=== PATIENT | female | born 1945 | race Caucasian/White ===

== ENCOUNTER 2016-04-24 10:46 | Emergency (ER) | payer MEDICARE, MEDICAID ==
[2016-04-24] MEDS: NS 0.9% 1000 ML* 2,000 ML IV ONE ×2 (12:17→13:12)
[2016-04-24 12:28] LABS: Hematocrit 41 % (35-47); Hemoglobin 14.1 g/dl (12.0-16.0); Mean Corpuscular HGB Conc 34 g/dl (31-36); Mean Corpuscular Hemoglobin 30 pg (27-31); Mean Corpuscular Volume 87 fL (80-97); Mean Platelet Volume 8 um3 (7.4-10.4); Red Blood Count 4.76 10^6/ul (4.0-5.4); Red Cell Distribution Width 13 % (10.5-15); White Blood Count 9.4 10^3/ul (3.5-10.8)
--- NOTE | 2016-04-24 12:37 | RAD ---
INDICATION: Cough. Pneumonia. COMPARISON: December 02, 2010 TECHNIQUE: PA and lateral dual-energy views were obtained. FINDINGS: Bones/Soft Tissues: There are no acute bony findings. Cardiomediastinal: The cardiomediastinal silhouette is normal. Lungs: There are no infiltrates. Pleura: There are no pleural effusions. Other: None IMPRESSION: NO ACTIVE DISEASE.
--- NOTE | 2016-04-24 12:44 | RAD ---
INDICATION: Vomiting. Abdominal pain COMPARISON: None TECHNIQUE: Erect and supine views of the abdomen are submitted. FINDINGS: Bones: There are no acute bony findings. Soft tissues: The soft tissues appear normal. The psoas margins are sharp. Bowel gas pattern: Normal Calcifications: There are no abnormal calcifications. Other: None IMPRESSION: NO ACUTE DIAGNOSTIC FINDINGS.
[2016-04-24 12:46] LABS: Troponin I 0.01 ng/mL (<0.04)
[2016-04-24 13:27] LABS: ALT 22 U/L (7-52); AST 29 U/L (13-39); Albumin 4.3 g/dL (3.2-5.2); Alkaline Phosphatase 70 U/L (34-104); Anion Gap 9 mmol/L (2-11); BUN/Creatinine Ratio 17.6 (8-20); Blood Urea Nitrogen 9 mg/dL (6-24); C Reactive Protein < 1.00 mg/L (< 5.00); CO2 Carbon Dioxide 26 mmol/L (22-32); Chloride 94 mmol/L (101-111); EGFR African American 153.3 (>60); EGFR Non-African American 119.2 (>60); Globulin 3.7 g/dL (2-4); Glucose 146 mg/dL (70-100); Magnesium 1.8 mg/dL (1.9-2.7); Potassium 3.5 mmol/L (3.5-5.0); Sodium 129 mmol/L (133-145)
[2016-04-24 13:36] LABS: TSH (Thyroid Stimulating Horm) 0.82 mcIU/mL (0.34-5.60)
[2016-04-24 14:22] VITALS: BP 149/61
--- NOTE | 2016-04-24 15:22 | ED ---
Yasmeen Kaiser SooYoung, scribed for Cristopher Alonso MD on 04/24/16 at 1126 . Complex/Multi-Sys Presentation - HPI Summary HPI Summary: A 70 y/o F BIBA from assisted living presents to ED after episode of dizziness. Pt has a mental handicap, may be an unreliable narrator, is present with a umbrella repairer. Associated sx: high BP, mild cough. Pt denies nausea, sore throat, CP and pain. Pert PMHx: mini strokes. Car Builder is unsure if pt fell yesterday, signs of broken vase in bathroom, but no visible bruising, pt denies fall. According to umbrella repairer, pt did not have a BM yesterday, pt complained of abd pain and she did not eat breakfast. Other residents have had the flu. Car Builder notes pt appears better than when she was brought in. - History Of Current Complaint Chief Complaint: EDGeneral Time Seen by Provider: 04/24/16 11:15 Hx Obtained From: Family/Car Builder Onset/Duration: Still Present Timing: Constant Associated Signs And Symptoms: Positive: Other - pos: high BP, mild cough - Allergies/Home Medications Allergies/Adverse Reactions: Allergies Allergy/AdvReac Type Severity Reaction Status Date / Time Ibuprofen Allergy Unknown Unknown Verified 02/10/16 20:20 Reaction Details PMH/Surg Hx/FS Hx/Imm Hx Previously Healthy: No Endocrine/Hematology History: Denies: Hx Anticoagulant Therapy, Hx Diabetes, Hx Thyroid Disease Cardiovascular History: Reports: Hx Hypertension Denies: Hx Congestive Heart Failure, Hx Deep Vein Thrombosis, Hx Myocardial Infarction, Hx Pacemaker/ICD Respiratory History: Denies: Hx Asthma, Hx Chronic Obstructive Pulmonary Disease (COPD), Hx Lung Cancer, Hx Pneumonia, Hx Pulmonary Embolism GI History: Denies: Hx Gall Bladder Disease, Hx Gastrointestinal Bleed, Hx Ulcer, Hx Urosepsis History: Denies: Hx Kidney Stones, Hx Renal Disease Sensory History: Denies: Hx Hearing Aid Neurological History: Denies: Hx Dementia, Hx Migraine, Hx Seizures, Hx Transient Ischemic Attacks (TIA) Psychiatric History: Reports: Hx Anxiety Denies: Hx Depression, Hx Panic Disorder, Hx Schizophrenia, Hx Bipolar Disorder - Surgical History Surgery Procedure, Year, and Place: NO KNOWN SURGERIES PER [facility] Infectious Disease History: No Infectious Disease History: Denies: Traveled Outside the [place] in Last 30 Days - Family History Known Family History: Positive: Unknown Family History: Patient is in a skilled nursing for mentally handicapped adults. Car Builder is new, and there are no records on family history (records reviewed) and the patient is not of the cognitive level to give us that information. - Social History Occupation: Disabled Lives: Assisted Living Alcohol Use: None Hx Substance Use: No Substance Use Type: Reports: None Hx Tobacco Use: No Smoking Status (MU): Never Smoked Tobacco Review of Systems Negative: Sore Throat Positive: Other - pos: BP. Negative: Chest Pain Positive: Cough Negative: Nausea Neurological: Other - pos: dizziness All Other Systems Reviewed And Are Negative: Yes Physical Exam - Summary Physical Exam Summary: The patient is well-nourished in no acute distress and in no acute pain. The skin is warm and FLUSHING OF FACE AND CHEST. HEENT: The head is normocephalic and atraumatic. The pupils are equal and reactive. The conjunctivae are clear and without drainage. Nares are patent and without drainage. Mouth reveals moist mucous membranes. The external ears are intact. The ear canals are patent and without drainage. The tympanic membranes are intact. POST NASAL DRIP. THROAT ERYTHEMATOUS. Neck is supple with full range of motion and non-tender. There are no carotid bruits. There is no neck vein distension. Respiratory: Chest is non-tender. Lungs are clear to auscultation and breath sounds are symmetrical and equal. Cardiovascular: Heart is regular rate and rhythm. There is no murmur or rub auscultated. There is no peripheral edema and pulses are symmetrical and equal. Abdomen: The abdomen is soft and non-tender. There are normal bowel sounds heard in all four quadrants and there is no organomegaly palpated. Musculoskeletal: There is no back pain noted. Extremities are non-tender with full range of motion. UNABLE TO CAPILLARY REFILL. There is no peripheral edema or calf tenderness elicited. Neurological: The patient has symmetrical motor strength in all four extremities. Cranial nerves are grossly intact. Deep tendon reflexes are symmetrical and equal in all four extremities. Psychiatric: The patient has an appropriate affect and does not exhibit any anxiety or depression. Triage Information Reviewed: Yes Vital Signs On Initial Exam: Initial Vitals Temp Pulse Resp BP Pulse Ox 99.2 F 97 18 156/59 96 04/24/16 10:58 04/24/16 10:58 04/24/16 10:58 04/24/16 10:58 04/24/16 10:58 Vital Signs Reviewed: Yes - [place] Coma Scale Coma Scale Total: 15 Diagnostics - Vital Signs Vital Signs Temp Pulse Resp BP Pulse Ox 04/24/16 10:58 99.2 F 97 18 156/59 96 - Laboratory Lab Results: Lab Results 04/24/16 04/24/16 04/24/16 Range/Units 12:20 12:20 12:20 WBC 9.4 (3.5-10.8) 10^3/ul RBC 4.76 (4.0-5.4) 10^6/ul Hgb 14.1 (12.0-16.0) g/dl Hct 41 (35-47) % MCV 87 (80-97) fL MCH 30 (27-31) pg MCHC 34 (31-36) g/dl RDW 13 (10.5-15) % Plt Count 196 (150-450) 10^3/ul MPV 8 (7.4-10.4) um3 Neut % (Auto) 88.3 H (38-83) % Lymph % (Auto) 7.3 L (25-47) % [place] % (Auto) 4.1 (1-9) % Eos % (Auto) 0 (0-6) % Baso % (Auto) 0.3 (0-2) % Absolute Neuts (auto) 8.3 H (1.5-7.7) 10^3/ul Absolute Lymphs (auto) 0.7 L (1.0-4.8) 10^3/ul Absolute Monos (auto) 0.4 (0-0.8) 10^3/ul Absolute Eos (auto) 0 (0-0.6) 10^3/ul Absolute Basos (auto) 0 (0-0.2) 10^3/ul Absolute Nucleated RBC 0.01 10^3/ul Nucleated RBC % 0.1 Sodium 129 L (133-145) mmol/L Potassium 3.5 (3.5-5.0) mmol/L Chloride 94 L (101-111) mmol/L Carbon Dioxide 26 (22-32) mmol/L Anion Gap 9 (2-11) mmol/L BUN 9 (6-24) mg/dL Creatinine 0.51 (0.51-0.95) mg/dL Est GFR ( Amer) 153.3 (>60) Est GFR (Non-Af Amer) 119.2 (>60) BUN/Creatinine Ratio 17.6 (8-20) Glucose 146 H (70-100) mg/dL Lactic Acid 1.1 (0.5-2.0) mmol/L Calcium 10.0 (8.6-10.3) mg/dL Magnesium 1.8 L (1.9-2.7) mg/dL Total Bilirubin 0.60 (0.2-1.0) mg/dL AST 29 (13-39) U/L ALT 22 (7-52) U/L Alkaline Phosphatase 70 (34-104) U/L Troponin I 0.01 (<0.04) ng/mL C-Reactive Protein < 1.00 (< 5.00) mg/L Total Protein 8.0 (6.4-8.9) g/dL Albumin 4.3 (3.2-5.2) g/dL Globulin 3.7 (2-4) g/dL Albumin/Globulin Ratio 1.2 (1-3) TSH 0.82 (0.34-5.60) mcIU/mL Group A Strep Rapid (Negative) 04/24/16 Range/Units 12:22 WBC (3.5-10.8) 10^3/ul RBC (4.0-5.4) 10^6/ul Hgb (12.0-16.0) g/dl Hct (35-47) % MCV (80-97) fL MCH (27-31) pg MCHC (31-36) g/dl RDW (10.5-15) % Plt Count (150-450) 10^3/ul MPV (7.4-10.4) um3 Neut % (Auto) (38-83) % Lymph % (Auto) (25-47) % [place] % (Auto) (1-9) % Eos % (Auto) (0-6) % Baso % (Auto) (0-2) % Absolute Neuts (auto) (1.5-7.7) 10^3/ul Absolute Lymphs (auto) (1.0-4.8) 10^3/ul Absolute Monos (auto) (0-0.8) 10^3/ul Absolute Eos (auto) (0-0.6) 10^3/ul Absolute Basos (auto) (0-0.2) 10^3/ul Absolute Nucleated RBC 10^3/ul Nucleated RBC % Sodium (133-145) mmol/L Potassium (3.5-5.0) mmol/L Chloride (101-111) mmol/L Carbon Dioxide (22-32) mmol/L Anion Gap (2-11) mmol/L BUN (6-24) mg/dL Creatinine (0.51-0.95) mg/dL Est GFR ( Amer) (>60) Est GFR (Non-Af Amer) (>60) BUN/Creatinine Ratio (8-20) Glucose (70-100) mg/dL Lactic Acid (0.5-2.0) mmol/L Calcium (8.6-10.3) mg/dL Magnesium (1.9-2.7) mg/dL Total Bilirubin (0.2-1.0) mg/dL AST (13-39) U/L ALT (7-52) U/L Alkaline Phosphatase (34-104) U/L Troponin I (<0.04) ng/mL C-Reactive Protein (< 5.00) mg/L Total Protein (6.4-8.9) g/dL Albumin (3.2-5.2) g/dL Globulin (2-4) g/dL Albumin/Globulin Ratio (1-3) TSH (0.34-5.60) mcIU/mL Group A Strep Rapid Negative (Negative) Result Diagrams: 04/24/16 12:20 04/24/16 12:20 Lab Statement: Any lab studies that have been ordered have been reviewed, and results considered in the medical decision making process. - Radiology CXR Xray Interpretation: No Acute Changes - no active dz Radiology Interpretation Completed By: Radiologist ABD XR Xray Interpretation: No Acute Changes - IMPRESSION: No acute diagnostic findings. Radiology Interpretation Completed By: Radiologist - EKG 1 Cardiac Rate: NL EKG Rhythm: Sinus Rhythm ST Segment: Normal EKG Interpretation: mild artifact Re-Evaluation - Re-Evaluation 1 Re-Evaluation Time: 14:19 Change: Unchanged Comment: Discussing results with pt. Attempted to collect urine but pt had BM. Pt states feeling better. Complex Multi-Symp Course/Dx - Diagnoses Differential Diagnoses/HQI/PQRI: Metabolic Abnormality, Other - chest pain, abdominal pain, sore throat, dehydration Provider Diagnoses: Dizziness, Weakness, Abdominal pain Discharge - Discharge Plan Condition: Stable Disposition: HOME Patient Education Materials: Dizziness (ED) Referrals: Zachary Isabel MD [Primary Care Provider] - Additional Instructions: Follow up with your primary care provider as needed. Return to the Emergency Department with new or worsening symptoms. The documentation as recorded by the Yasmeen cramer SooYoung accurately reflects the service I personally performed and the decisions made by me, Cristopher Alonso MD.
== END 2016-04-24 14:38 | disposition home or self-care (01) ==
LOC: ED 10:46
DX: R42 Dizziness and giddiness (principal); R53.1 Weakness; R10.9 Unspecified abdominal pain; Z86.73 Personal history of transient ischemic attack (TIA), and cerebral infarction without residual deficits; I10 Essential (primary) hypertension
CPT/HCPCS: 36415; 71020; 74020; 80053; 83605; 83735; 84443; 84484; 85025; 86140; 87651; 93005; 96360; 99283

== ENCOUNTER 2016-04-24 17:44 | Emergency (ER) | payer MEDICARE, MEDICAID ==
[2016-04-24] MEDS ORDERED: Ondansetron INJ* 2 MG/ML VIAL IV ONE (18:49)
[2016-04-24] MEDS ORDERED: NS 0.9% 1000 ML* 2,000 ML IV ONE (18:49)
[2016-04-24 19:01] LABS: Hematocrit 38 % (35-47); Hemoglobin 13.2 g/dl (12.0-16.0); Mean Corpuscular HGB Conc 35 g/dl (31-36); Mean Corpuscular Hemoglobin 30 pg (27-31); Mean Corpuscular Volume 86 fL (80-97); Mean Platelet Volume 8 um3 (7.4-10.4); Red Blood Count 4.38 10^6/ul (4.0-5.4); Red Cell Distribution Width 13 % (10.5-15); White Blood Count 11.1 10^3/ul (3.5-10.8)
[2016-04-24 19:19] LABS: ALT 22 U/L (7-52); AST 31 U/L (13-39); Albumin 4.1 g/dL (3.2-5.2); Alkaline Phosphatase 66 U/L (34-104); Anion Gap 9 mmol/L (2-11); Blood Urea Nitrogen 7 mg/dL (6-24); C Reactive Protein < 1.00 mg/L (< 5.00); CO2 Carbon Dioxide 24 mmol/L (22-32); Calcium 9.3 mg/dL (8.6-10.3); Chloride 92 mmol/L (101-111); EGFR African American 156.9 (>60); Globulin 3.3 g/dL (2-4); Glucose 188 mg/dL (70-100); Potassium 3.2 mmol/L (3.5-5.0); Sodium 125 mmol/L (133-145); Total Protein 7.4 g/dL (6.4-8.9)
--- NOTE | 2016-04-24 19:20 | ED ---
Influenza-Like Illness - HPI Summary HPI Summary: Patient was seen approximately 7 hours ago in this ED and now presents with continued nausea and vomiting, and a fever of 100.9. She has mild MR and her caregiver reports she is still dizzy. She has a sore throat that was strep negative at her previous visit. With her continued symptoms her [facility] called her PCP, who told them to bring her back to the ED. She denies neck pain , CONDON, CP or SOB. She admits to mild diffuse abdominal pain. - History of Current Complaint Chief Complaint: EDGeneral Time Seen by Provider: 04/24/16 18:28 Hx Obtained From: Patient, Family/Seismograph Operator Helper Onset/Duration: Gradual Onset Severity: Severe Associated Signs & Symptoms: Fever, Sore Throat, Vomiting Related Hx: Possible Flu/Infectious Exposure - Allergy/Home Medications Allergies/Adverse Reactions: Allergies Allergy/AdvReac Type Severity Reaction Status Date / Time Ibuprofen Allergy Unknown Unknown Verified 04/24/16 17:48 Reaction Details PMH/Surg Hx/FS Hx/Imm Hx Endocrine/Hematology History: Denies: Hx Anticoagulant Therapy, Hx Diabetes, Hx Thyroid Disease Cardiovascular History: Reports: Hx Hypertension Denies: Hx Congestive Heart Failure, Hx Deep Vein Thrombosis, Hx Myocardial Infarction, Hx Pacemaker/ICD Respiratory History: Denies: Hx Asthma, Hx Chronic Obstructive Pulmonary Disease (COPD), Hx Lung Cancer, Hx Pneumonia, Hx Pulmonary Embolism GI History: Denies: Hx Gall Bladder Disease, Hx Gastrointestinal Bleed, Hx Ulcer, Hx Urosepsis History: Denies: Hx Kidney Stones, Hx Renal Disease Sensory History: Denies: Hx Hearing Aid Neurological History: Reports: Other Neuro Impairments/Disorders - MR Denies: Hx Dementia, Hx Migraine, Hx Seizures, Hx Transient Ischemic Attacks (TIA) Psychiatric History: Reports: Hx Anxiety Denies: Hx Depression, Hx Panic Disorder, Hx Schizophrenia, Hx Bipolar Disorder - Surgical History Surgery Procedure, Year, and Place: NO KNOWN SURGERIES PER [facility] Infectious Disease History: No Infectious Disease History: Denies: Traveled Outside the [place] in Last 30 Days - Family History Known Family History: Positive: Unknown Family History: Patient is in a [facility] for mentally handicapped adults. Seismograph Operator Helper is new, and there are no records on family history (records reviewed) and the patient is not of the cognitive level to give us that information. - Social History Occupation: Disabled Lives: Assisted Living Alcohol Use: None Hx Substance Use: No Substance Use Type: Reports: None Hx Tobacco Use: No Smoking Status (MU): Never Smoked Tobacco Review of Systems Positive: Fever - 100.9 at home, Chills, Fatigue, Skin Diaphoresis Positive: Sore Throat. Negative: Ear Ache Negative: Chest Pain Negative: Shortness Of Breath, Cough Positive: Abdominal Pain - mild diffuse, Vomiting, Nausea Negative: Headache, Weakness, Paresthesia All Other Systems Reviewed And Are Negative: Yes Physical Exam Triage Information Reviewed: Yes Vital Signs On Initial Exam: Initial Vitals Temp Pulse Resp BP Pulse Ox 99.5 F 101 20 145/87 99 04/24/16 17:49 04/24/16 17:49 04/24/16 17:49 04/24/16 17:49 04/24/16 17:49 Vital Signs Reviewed: Yes Appearance: Positive: Well-Appearing, No Pain Distress, Well-Nourished Skin: Positive: Warm, Skin Color Reflects Adequate Perfusion, Dry, Soft, Diaphoretic - mild Head/Face: Positive: Normal Head/Face Inspection Eyes: Positive: EOMI, COLTEN, Conjunctiva Clear ENT: Positive: Hearing grossly normal Neck: Positive: Supple, Nontender, No Lymphadenopathy Respiratory/Lung Sounds: Positive: Clear to Auscultation, Breath Sounds Present Diagnostics - Vital Signs Vital Signs Temp Pulse Resp BP Pulse Ox 04/24/16 17:49 99.5 F 101 20 145/87 99 - Laboratory Lab Results: Lab Results 04/24/16 Range/Units 18:50 WBC 11.1 H (3.5-10.8) 10^3/ul RBC 4.38 (4.0-5.4) 10^6/ul Hgb 13.2 (12.0-16.0) g/dl Hct 38 (35-47) % MCV 86 (80-97) fL MCH 30 (27-31) pg MCHC 35 (31-36) g/dl RDW 13 (10.5-15) % Plt Count 196 (150-450) 10^3/ul MPV 8 (7.4-10.4) um3 Neut % (Auto) 90.4 H (38-83) % Lymph % (Auto) 6.0 L (25-47) % [place] % (Auto) 3.1 (1-9) % Eos % (Auto) 0 (0-6) % Baso % (Auto) 0.5 (0-2) % Absolute Neuts (auto) 10.1 H (1.5-7.7) 10^3/ul Absolute Lymphs (auto) 0.7 L (1.0-4.8) 10^3/ul Absolute Monos (auto) 0.3 (0-0.8) 10^3/ul Absolute Eos (auto) 0 (0-0.6) 10^3/ul Absolute Basos (auto) 0.1 (0-0.2) 10^3/ul Absolute Nucleated RBC 0 10^3/ul Nucleated RBC % 0 Result Diagrams: 04/24/16 18:50 04/24/16 18:50 Lab Statement: Any lab studies that have been ordered have been reviewed, and results considered in the medical decision making process. Re-Evaluation - Re-Evaluation First Eval Change: Improved - Patient says she "feels better" Flu Symptom Course/Dx - Course Course Of Treatment: Labs and images from earlier were reveiwed. - Diagnoses Differential Diagnosis/HQI/PQRI: Positive: Bronchitis, Influenza, Pneumonia, RSV , Upper Respiratory Infection Provider Diagnoses: Viral illness Discharge - Discharge Plan Condition: Stable Disposition: HOME Patient Education Materials: Viral Syndrome (ED) Referrals: Zachary Isabel MD [Primary Care Provider] - Additional Instructions: Please follow-up with your primary care provider in 1-2 days for evaluation if your symptoms persist. Use Tylenol 650 mg every four hours to keep your fever down and drink extra fluids to avoid dehydration. Return to the emergency department if your symptoms worsen.
[2016-04-24] MEDS ORDERED: Acetaminophen TAB* 325 MG PO ONE (19:27)
[2016-04-24 21:34] LABS: Urine Bacteria Absent (Absent); Urine Bilirubin Negative (Negative); Urine Glucose 2+(150 mg/dL) (Negative); Urine Nitrite Negative (Negative)
[2016-04-24] MEDS ORDERED: Ondansetron ODT TAB* 4 MG PO ONE (22:09)
[2016-04-24 22:41] VITALS: BP 154/71
== END 2016-04-24 22:40 | disposition home or self-care (01) ==
LOC: ED 17:44
DX: B34.9 Viral infection, unspecified (principal); R50.9 Fever, unspecified; J02.9 Acute pharyngitis, unspecified; R10.84 Generalized abdominal pain; R11.2 Nausea with vomiting, unspecified
CPT/HCPCS: 36415; 80053; 81003; 81015; 85025; 86140; 87502; 96374; 99284; A9270-GY; J2405

== ENCOUNTER 2016-05-31 16:00 | Emergency (ER) | payer MEDICARE, MEDICAID ==
[2016-05-31 18:14] VITALS: BP 169/69
--- NOTE | 2016-05-31 18:21 | UC ---
Dizzy HPI HPI Summary: PT IS A RESIDENT AT [facility]. HAS BEEN C/O DIZZINESS INTERMITTENTLY FOR ABOUT A WEEK. STATES IS HAPPENS WHEN SHE "GETS UP TOO FAST". GETS BETTER WHEN SHE RESTS. CURRENTLY IS RECEIVING EAR DROPS FOR WAX BUILDUP. DENIES CP, SOB, N/V , FEVER, VISUAL DISTURBANCES. AT TIME OF EXAM IS ASYMPTOMATIC. - History Of Current Complaint Chief Complaint: UCDizziness Stated Complaint: DIZZINESS Time Seen by Provider: 05/31/16 17:36 Hx Obtained From: Patient Hx Last Menstrual Period: Years ago. Onset/Duration: Gradual Onset, Lasting Weeks, Still Present - BUT ASYMPTOMATIC AT TIME OF EXAM Timing: Intermittent Episode Lasting Severity Initially: Moderate Severity Currently: None Pain Intensity: 0 Pain Scale Used: 0-10 Numeric Character: Unable To Describe Aggravating Factor(s): Position Change - "GETTING UP TOO FAST" Alleviating Factor(s): Rest Associated Signs And Symptoms: Negative: Nausea, Vomiting, Diaphoresis, Tinnitus , Chest Pain, SOB, Unsteady Gait - Allergies/Home Medications Allergies/Adverse Reactions: Allergies Allergy/AdvReac Type Severity Reaction Status Date / Time Ibuprofen Allergy Unknown Unknown Verified 04/24/16 17:48 Reaction Details PMH/Surg Hx/FS Hx/Imm Hx Endocrine History Of: Reports: Dyslipidemia Denies: Diabetes, Thyroid Disease, Hyperthyroidism, Hypothyroidism Cardiovascular History Of: Reports: Hypertension Denies: Cardiac Disorders, Pacemaker/ICD, Myocardial Infarction, Congestive Heart Failure, Atrial Fibrillation, Deep Vein Thrombosis, Bleeding Disorders Respiratory History Of: Denies: COPD, Asthma, Bronchitis, Pneumonia, Pulmonary Embolism GI/ History Of: Denies: Gastroesophageal Reflux, Ulcer, Gastrointestinal Bleed, Gall Bladder Disease, Kidney Stones, Diverticulitis, Renal Disease, Urosepsis Neurological History Of: Denies: TIA, CVA, Dementia, Seizures, Migraine Psychological History Of: Reports: Anxiety Denies: Depression, Bipolar Disorder, Schizophrenia, Post Traumatic Stress Disorder Cancer History Of: Denies: Lung Cancer, Colorectal Cancer, Breast Cancer, Prostate Cancer, Cervical Cancer Other History Of: Negative For: HIV, Hepatitis B, Hepatitis C, Anticoagulant Therapy - Surgical History Surgical History: Unable to Obtain/Confirm Surgery Procedure, Year, and Place: NO KNOWN SURGERIES PER [facility] AT [facility] - Family History Known Family History: Positive: Unknown Family History: Patient is in a prison for mentally handicapped adults. Bottom Turning Lathe Tender is new, and there are no records on family history (records reviewed) and the patient is not of the cognitive level to give us that information. - Social History Alcohol Use: None Substance Use Type: None Smoking Status (MU): Never Smoked Tobacco Review of Systems Constitutional: Negative ENT: Ear Ache Respiratory: Negative Cardiovascular: Negative Gastrointestinal: Negative Neurological: Other - DIZZY All Other Systems Reviewed And Are Negative: Yes Physical Exam Triage Information Reviewed: Yes Appearance: Well-Appearing, No Pain Distress, Well-Nourished Vital Signs: Initial Vital Signs Temp 98 F 05/31/16 16:14 Pulse 72 05/31/16 16:14 Resp 16 05/31/16 16:14 BP 148/68 05/31/16 16:14 Pulse Ox 98 05/31/16 16:14 Vital Signs Reviewed: Yes Eyes: Positive: Conjunctiva Clear ENT: Positive: Hearing grossly normal, Pharynx normal, Other: - LEFT TM NORMAL. RIGHT TM NOT VISUALIZED DUE TO DEBRIS AND EDEMA RIGHT EAC. Neck: Positive: Supple, Nontender, No Lymphadenopathy Respiratory Exam: Normal Cardiovascular Exam: Normal Abdomen Description: Positive: Soft Musculoskeletal: Positive: No Edema Neurological: Positive: Alert Psychological: Positive: Other: - BEHAVIOR AT BASELINE Skin: Negative: rashes Dizzy Course/Dx - Course Course Of Treatment: ORTHOSTATICS OVERALL UNREMARKABLE. SX MAY BE DUE TO EAR INFECTION. WILL TREAT AND HAVE PT F/U WITH PCP FOR RE-EVAL IN 1 WEEK. TO ER WITHOUT FAIL IF SX CHANGE OR WORSEN. - Differential Dx/Diagnosis Provider Diagnoses: RIGHT OTITIS EXTERNA Discharge - Discharge Plan Condition: Stable Disposition: HOME Prescriptions: Ciproflox/Dexameth OTIC.SUSP* [Ciprodex Otic*] 4 drop RIGHT EAR BID #1 bottle Patient Education Materials: Otitis Externa (ED), Dizziness (ED) Referrals: Zachary Cuellar MD [Primary Care Provider] - 1 Week Additional Instructions: YOUR DIZZINESS MAY BE DUE TO YOUR RIGHT SIDED EAR INFECTION. USE THE DROPS TWICE DAILY FOR A WEEK THEN FOLLOW-UP WITH DR. CUELLAR FOR RE-EVALUATION. GO TO ER WITHOUT FAIL IF YOU DEVELOP WORSENING/PERSISTENT DIZZINESS, CHEST PAIN , SHORTNESS OF BREATH, NAUSEA, SWEATS OR ANY OTHER CONCERNING SYMPTOMS. Dizziness, non-specific: Dizziness means a sense of severe lightheadedness or instability. It can be a symptom of many different diseases, and is a side effect of many medicines. It can be caused by high blood pressure, or by low blood pressure. It can even be a symptom of anxiety. Dizziness can also happen to perfectly healthy people. Sometimes it's caused by over-exercise, mild dehydration, lack of sleep, or poor nutrition. Sometimes we find no explanation. We try to diagnose the exact cause of dizziness, such as dehydration, fever , diabetes, low heart rate, etc. Sometimes it's obvious right away. If not, we do testing. At this time, there's no evidence of a serious problem requiring hospitalization. You should get enough rest, exercise moderately, and get plenty of fluids. Continue your usual medicines unless the doctor has specifically told you to change them. When you feel the first symptoms suggesting you might faint, sit or squat down as quickly as you can. If symptoms don't go away quickly, lie down. Call the doctor or return if you are worsening or if new symptoms develop.
== END 2016-05-31 18:39 | disposition home or self-care (01) ==
LOC: UCEAST 16:00
DX: H60.91 Unspecified otitis externa, right ear (principal); Z88.6 Allergy status to analgesic agent; E78.5 Hyperlipidemia, unspecified; I10 Essential (primary) hypertension; F41.9 Anxiety disorder, unspecified
CPT/HCPCS: 99202; G0463

== ENCOUNTER 2016-08-20 20:40 | Emergency (ER) | payer MEDICARE, MEDICAID ==
--- NOTE | 2016-08-20 21:29 | ED ---
Mira Kaiser Alfonso, scribed for Carlos Manuel Avendano MD on 08/20/16 at 2116 . Throat Pain/Nasal Congestion - HPI Summary HPI Summary: This patient is a 70 year old female presenting from [facility] to [facility] for a choking on food three hours ago. The Heimlich maneuver was used successfully by staff to dislodge salad and macaroni from her throat. She reports throat pain and rates the current pain 0/10 in severity. Symptoms aggravated and alleviated by nothing. Pt here for evaluation of throat, per [facility] policy. 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 Onset/Duration: Sudden Onset, Resolved Severity: Mild Associated Signs And Symptoms: Positive: Negative - Allergies/Home Medications Allergies/Adverse Reactions: Allergies Allergy/AdvReac Type Severity Reaction Status Date / Time Ibuprofen Allergy Unknown Unknown Verified 08/20/16 20:58 Reaction Details PMH/Surg Hx/FS Hx/Imm Hx Endocrine/Hematology History: Denies: Hx Anticoagulant Therapy, Hx Diabetes, Hx Thyroid Disease Cardiovascular History: Reports: Hx Hypertension Denies: Hx Congestive Heart Failure, Hx Deep Vein Thrombosis, Hx Myocardial Infarction, Hx Pacemaker/ICD Respiratory History: Denies: Hx Asthma, Hx Chronic Obstructive Pulmonary Disease (COPD), Hx Lung Cancer, Hx Pneumonia, Hx Pulmonary Embolism GI History: Denies: Hx Gall Bladder Disease, Hx Gastrointestinal Bleed, Hx Ulcer, Hx Urosepsis History: Denies: Hx Kidney Stones, Hx Renal Disease Sensory History: Denies: Hx Hearing Aid Neurological History: Reports: Other Neuro Impairments/Disorders - MR Denies: Hx Dementia, Hx Migraine, Hx Seizures, Hx Transient Ischemic Attacks (TIA) Psychiatric History: Reports: Hx Anxiety Denies: Hx Depression, Hx Panic Disorder, Hx Schizophrenia, Hx Bipolar Disorder - Surgical History Surgery Procedure, Year, and Place: NO KNOWN SURGERIES PER [facility] AT [facility] Infectious Disease History: Unable to Obtain/Confirm Infectious Disease History: Denies: Traveled Outside the [place] in Last 30 Days - Family History Known Family History: Positive: Unknown Family History: Patient is in a intermediate for mentally handicapped adults. Door Builder is new, and there are no records on family history (records reviewed) and the patient is not of the cognitive level to give us that information. - Social History Alcohol Use: None Hx Substance Use: No Substance Use Type: Reports: None Hx Tobacco Use: No Smoking Status (MU): Never Smoked Tobacco Review of Systems Negative: Fever Positive: Sore Throat - Throat pain secondary to choking on food All Other Systems Reviewed And Are Negative: Yes Physical Exam Triage Information Reviewed: Yes Vital Signs On Initial Exam: Initial Vitals Temp Pulse Resp BP Pulse Ox 97.8 F 67 16 155/59 97 08/20/16 20:50 08/20/16 20:50 08/20/16 20:50 08/20/16 20:50 08/20/16 20:50 Vital Signs Reviewed: Yes Appearance: Positive: Well-Appearing, No Pain Distress Skin: Positive: Warm Head/Face: Positive: Normal Head/Face Inspection Eyes: Positive: COLTEN ENT: Positive: Pharynx normal. Negative: Pharyngeal erythema Neck: Positive: Supple, Nontender Respiratory/Lung Sounds: Positive: Clear to Auscultation, Breath Sounds Present Cardiovascular: Positive: RRR Abdomen Description: Positive: Nontender, Soft Bowel Sounds: Positive: Present Musculoskeletal: Positive: Strength/ROM Intact - Josue Coma Scale Coma Scale Total: 15 Diagnostics - Vital Signs Vital Signs Temp Pulse Resp BP Pulse Ox 08/20/16 21:04 66 97 08/20/16 21:03 97.7 F 67 18 141/53 97 08/20/16 21:02 141/53 08/20/16 20:50 97.8 F 67 16 155/59 97 - Laboratory Lab Statement: Any lab studies that have been ordered have been reviewed, and results considered in the medical decision making process. Re-Evaluation - Re-Evaluation First Eval Change: Improved - pt tolerating po without difficulty EENT Course/Dx - Diagnoses Provider Diagnoses: Choking due to food (regurgitated) Discharge - Discharge Plan Condition: Stable Disposition: HOME Patient Education Materials: Performing the Heimlich Maneuver (ED), Esophageal Foreign Body (ED) Referrals: Zachary Isabel MD [Primary Care Provider] - 1 Week The documentation as recorded by the Mira cramer Alfonso accurately reflects the service I personally performed and the decisions made by me, Carlos Manuel Avendano MD.
[2016-08-20 21:42] VITALS: BP 128/54
== END 2016-08-20 21:40 | disposition home or self-care (01) ==
LOC: ED 20:40
DX: T17.928A Food in respiratory tract, part unspecified causing other injury, initial encounter (principal); J02.9 Acute pharyngitis, unspecified; X58.XXXA Exposure to other specified factors, initial encounter; Y93.9 Activity, unspecified; Y92.9 Unspecified place or not applicable; Y99.9 Unspecified external cause status
CPT/HCPCS: 99282

== ENCOUNTER 2016-09-09 21:30 | Emergency (ER) | payer MEDICARE, MEDICAID ==
[2016-09-09 21:37] VITALS: BP 121/51
--- NOTE | 2016-09-09 22:01 | UC ---
General HPI - HPI Summary HPI Summary: here with caregiver staff member was giving her a shower and they found some bruising right side of buttocks and right side of back patient doesn't remember falling recently, staff have no report of falls was with her family of origin yesterday patient states she has pain anywhere today she has been able to do all her normal activities normal appetite, normal elimination sleeping well - History of Current Complaint Chief Complaint: UCTrauma Stated Complaint: BRUISING ON BODY Time Seen by Provider: 09/09/16 21:54 Hx Obtained From: Patient - Allergy/Home Medications Allergies/Adverse Reactions: Allergies Allergy/AdvReac Type Severity Reaction Status Date / Time Ibuprofen Allergy Unknown Unknown Verified 09/09/16 21:37 Reaction Details PMH/Surg Hx/FS Hx/Imm Hx Previously Healthy: Yes Endocrine History: Dyslipidemia Cardiovascular History: Hypertension, Atrial Fibrillation GI/ History: Gastroesophageal Reflux Psychological History: Depression Other History Of: Negative For: HIV, Hepatitis B, Hepatitis C, Anticoagulant Therapy - Surgical History Surgical History: Unable to Obtain/Confirm Surgery Procedure, Year, and Place: NO KNOWN SURGERIES PER [facility] - Family History Known Family History: Positive: Unknown Family History: Patient is in a halfway for mentally handicapped adults. Director Specialty is new, and there are no records on family history (records reviewed) and the patient is not of the cognitive level to give us that information. - Social History Occupation: Disabled Lives: [facility] [employer] [facility] Alcohol Use: None Substance Use Type: None Smoking Status (MU): Never Smoked Tobacco Review of Systems Constitutional: Negative Skin: Bruising Eyes: Negative ENT: Negative Respiratory: Negative Cardiovascular: Negative Gastrointestinal: Negative Genitourinary: Negative Motor: Negative Neurovascular: Negative Musculoskeletal: Negative Neurological: Negative Psychological: Negative All Other Systems Reviewed And Are Negative: Yes Physical Exam Triage Information Reviewed: Yes Appearance: No Pain Distress, Well-Nourished Vital Signs: Initial Vital Signs Temp 97.8 F 09/09/16 21:34 Pulse 56 09/09/16 21:34 Resp 20 09/09/16 21:34 BP 121/51 09/09/16 21:34 Pulse Ox 98 09/09/16 21:34 Vital Signs Reviewed: Yes Eyes: Positive: Conjunctiva Clear ENT: Positive: Pharynx normal, TMs normal Neck: Positive: No Lymphadenopathy, Other: - no cspine tenderness Respiratory: Positive: Lungs clear, Normal breath sounds, No respiratory distress, No accessory muscle use Cardiovascular: Positive: RRR, No Murmur, Pulses Normal, Brisk Capillary Refill Abdomen Description: Positive: Nontender, No Organomegaly, Soft. Negative: CVA Tenderness (R), CVA Tenderness (L), Distended, Guarding Bowel Sounds: Positive: Present Musculoskeletal: Positive: Other: - area of ecchymosis on right flank- non tender 6x6cm area of eccyosis on right buittocks- non tender hips non tender, ribcage nontender, lower back non tender Neurological: Positive: Alert Psychological Exam: Normal Skin Exam: Normal Course/Dx - Course Course Of Treatment: exam completed. pt with some brusing on buttocks and righ side of back. she has no tenderness in any areas of bruising-no indication for x-rays at this time. followup with PCP - Differential Dx - Multi-Symptom Provider Diagnoses: contusion right buttock, right side of back Discharge - Discharge Plan Condition: Stable Disposition: HOME Patient Education Materials: Contusion in Adults (ED) Referrals: Zachary Isabel MD [Primary Care Provider] - Additional Instructions: Ellie has some bruising on her buttocks and right side of back She is not experiencing any pain with moment and examination today Take acetaminophen for pain Please review your discharge instructions. If your symptoms do not improve please call your primary care provider or return to urgent care.
== END 2016-09-09 22:25 | disposition home or self-care (01) ==
LOC: UCEAST 21:30
DX: S30.0XXA Contusion of lower back and pelvis, initial encounter (principal)
CPT/HCPCS: 99211; G0463

== ENCOUNTER 2017-01-20 17:52 | Emergency (ER) | payer MEDICARE, MEDICAID ==
[2017-01-20 18:06] VITALS: BP 141/56
--- NOTE | 2017-01-20 18:56 | UC ---
Syncope/New Syncope HPI - HPI Summary HPI Summary: dizzy and fell today palm size contusion on right lower back. No c/o injury. Does report dizziness and fall - History Of Current Complaint Chief Complaint: UCGeneralIllness Stated Complaint: DIZZINESS FROM A FALL Time Seen by Provider: 01/20/17 18:22 Hx Obtained From: Patient Hx Last Menstrual Period: Years ago. ?: No Onset/Duration: Gradual Onset, Lasting Weeks - has been c/o dizziness Activity At Onset: Unknown Timing: Intermittent Episode Lasting Context: Witnessed Associated Head Trauma: No Aggravating Factor(s): Nothing Alleviating Factor(s): Nothing Associated Signs And Symptoms: Positive: Dizzy - Allergies/Home Medications Allergies/Adverse Reactions: Allergies Allergy/AdvReac Type Severity Reaction Status Date / Time Ibuprofen Allergy Unknown Unknown Verified 01/20/17 18:07 Reaction Details Home Medications: Home Medications Acetaminophen TAB* [Tylenol TAB*] 650 mg PO Q4H PRN 01/20/17 [History Confirmed 01/20/17] Bisacodyl SUPP* [Dulcolax Supp*] 10 mg LA DAILY PRN 01/20/17 [History Confirmed 01/20/17] Bismatrol* 2 tbsp PO PRN 01/20/17 [History] Carbamide Peroxide 6.5% OTIC* [DEBROX 6.5% Otic*] 01/20/17 [History] Guaituss* 01/20/17 [History] Mouthwashes [Listerine Antiseptic] 1 liq MT 01/20/17 [History] Multiple Vitamins W/ Minerals [Multivitamin Adults] 1 tab PO DAILY 01/20/17 [ History Confirmed 01/20/17] Uqflytdv-Epltoxhvsl-Qbfxqyqco [Triple Antibiotic] 1 oin EX 01/20/17 [History Confirmed 01/20/17] Polyethylene Glycol 3350* [Miralax*] 01/20/17 [History] Sonicare Dental Product* TID 01/20/17 [History] PMH/Surg Hx/FS Hx/Imm Hx Previously Healthy: Yes - MR Cardiovascular History: Hypertension GI/ History: Gastroesophageal Reflux Psychological History: Depression Other History Of: Negative For: HIV, Hepatitis B, Hepatitis C, Anticoagulant Therapy - Surgical History Surgical History: None Surgery Procedure, Year, and Place: NO KNOWN SURGERIES PER [facility] AT [facility] - Family History Known Family History: Positive: Unknown Family History: Patient is in a detention for mentally handicapped adults. Leave Coordinator is new, and there are no records on family history (records reviewed) and the patient is not of the cognitive level to give us that information. - Social History Occupation: Disabled Lives: Assisted Alcohol Use: None Substance Use Type: None Smoking Status (MU): Never Smoked Tobacco Review of Systems Constitutional: Negative Skin: Bruising Eyes: Negative ENT: Negative Respiratory: Negative Cardiovascular: Negative Gastrointestinal: Negative Genitourinary: Negative Motor: Negative Neurovascular: Negative Musculoskeletal: Negative Neurological: Negative Psychological: Negative Is Patient Immunocompromised?: No All Other Systems Reviewed And Are Negative: Yes Physical Exam Triage Information Reviewed: Yes Appearance: Well-Appearing, No Pain Distress, Well-Nourished Vital Signs: Initial Vital Signs Pulse 77 01/20/17 18:02 Resp 18 01/20/17 18:02 BP 141/56 01/20/17 18:02 Pulse Ox 100 01/20/17 18:02 Vital Signs Reviewed: Yes Eye Exam: Normal Eyes: Positive: Conjunctiva Clear ENT Exam: Normal ENT: Positive: Normal ENT inspection, Hearing grossly normal, Pharynx normal, TMs normal - cerumen, Uvula midline. Negative: Nasal congestion, Nasal drainage , Tonsillar swelling, Tonsillar exudate, Trismus, Muffled voice, Hoarse voice, Dental tenderness, Sinus tenderness Dental Exam: Normal Neck exam: Normal Neck: Positive: Supple, Nontender, No Lymphadenopathy Respiratory Exam: Normal Respiratory: Positive: Chest non-tender, Lungs clear, Normal breath sounds, No respiratory distress, No accessory muscle use Cardiovascular Exam: Normal Cardiovascular: Positive: RRR, No Murmur, Pulses Normal, Brisk Capillary Refill Abdominal Exam: Normal Abdomen Description: Positive: Nontender, No Organomegaly, Soft. Negative: CVA Tenderness (R), CVA Tenderness (L) Bowel Sounds: Positive: Present Musculoskeletal Exam: Normal Musculoskeletal: Positive: Strength Intact, ROM Intact, No Edema Neurological Exam: Normal Neurological: Positive: Alert Psychological Exam: Normal Psychological: Positive: Normal Response To Family Skin Exam: Other Skin: Positive: Other - contusion right lower back Diagnostics - EKG Cardiac Rate: NL Cardiac Rhythm: Sinus: Normal Ectopy: None ST Segment: Normal Syncope Course/Dx - Course Course Of Treatment: report to ed for further evaluation - Differential Dx/Diagnosis Provider Diagnoses: right flank contusion, dizziness with fall Discharge - Discharge Plan Condition: Stable Disposition: OTHER Discharge Disposition Comment: to ed for further evaluation Patient Education Materials: Fall Prevention for Older Adults (ED), Dizziness ( ED) Referrals: Holland Marion MD [Primary Care Provider] - 1 Week Additional Instructions: Please go directly to the emergency department for higher level of care
== END 2017-01-20 19:05 ==
LOC: UCEAST 17:52
DX: S30.1XXA Contusion of abdominal wall, initial encounter (principal); W19.XXXA Unspecified fall, initial encounter; Y93.9 Activity, unspecified; Y92.9 Unspecified place or not applicable; Y99.9 Unspecified external cause status; R42 Dizziness and giddiness; I10 Essential (primary) hypertension; K21.9 Gastro-esophageal reflux disease without esophagitis; F32.9 Major depressive disorder, single episode, unspecified
CPT/HCPCS: 93005; 99212; G0463

== ENCOUNTER 2017-01-20 19:31 | Emergency (ER) | payer MEDICARE, MEDICAID ==
--- NOTE | 2017-01-21 00:25 | ED ---
Adult Trauma - HPI Summary HPI Summary: 71F presents with right flank injury today. She was trying to get on her shoes. She states that she fell backwards onto her right back. She denies any pain but she has a large hematoma to right side of back. She is not on any blood thinners. She is able to ambulate. She denies any head injury or LOC. She denies any upper or lower extremity pain. She denies any chest pain or SOB. She is not dizzy. She denies any neck pain. She has no complaints. - History of Current Complaint Chief Complaint: EDSoftTissueLowExtr Stated Complaint: FALL, COMING FROM Time Seen by Provider: 01/20/17 23:47 Hx Last Menstrual Period: Years ago. Pain Intensity: 0 - Allergy/Home Medications Allergies/Adverse Reactions: Allergies Allergy/AdvReac Type Severity Reaction Status Date / Time Ibuprofen Allergy Unknown Unknown Verified 01/21/17 00:16 Reaction Details PMH/Surg Hx/FS Hx/Imm Hx Endocrine/Hematology History: Denies: Hx Anticoagulant Therapy, Hx Diabetes, Hx Thyroid Disease Cardiovascular History: Reports: Hx Hypertension Denies: Hx Congestive Heart Failure, Hx Deep Vein Thrombosis, Hx Myocardial Infarction, Hx Pacemaker/ICD Respiratory History: Denies: Hx Asthma, Hx Chronic Obstructive Pulmonary Disease (COPD), Hx Lung Cancer, Hx Pneumonia, Hx Pulmonary Embolism GI History: Denies: Hx Gall Bladder Disease, Hx Gastrointestinal Bleed, Hx Ulcer, Hx Urosepsis History: Denies: Hx Kidney Stones, Hx Renal Disease Sensory History: Denies: Hx Hearing Aid Neurological History: Reports: Other Neuro Impairments/Disorders - MR Denies: Hx Dementia, Hx Migraine, Hx Seizures, Hx Transient Ischemic Attacks (TIA) Psychiatric History: Reports: Hx Anxiety Denies: Hx Depression, Hx Panic Disorder, Hx Schizophrenia, Hx Bipolar Disorder - Surgical History Surgery Procedure, Year, and Place: NO KNOWN SURGERIES PER [facility] - Immunization History Date of Influenza Vaccine: 12/2016 Infectious Disease History: No Infectious Disease History: Denies: Traveled Outside the [place] in Last 30 Days - Family History Known Family History: Positive: Unknown Family History: Patient is in a alf for mentally handicapped adults. Administrative Assistant Office Manager is new, and there are no records on family history (records reviewed) and the patient is not of the cognitive level to give us that information. - Social History Alcohol Use: None Hx Substance Use: No Substance Use Type: Reports: None Hx Tobacco Use: No Smoking Status (MU): Never Smoked Tobacco Review of Systems Negative: Fever Negative: Chest Pain Negative: Shortness Of Breath Positive: Bruising All Other Systems Reviewed And Are Negative: Yes Physical Exam Triage Information Reviewed: Yes Vital Signs On Initial Exam: Initial Vitals Temp Pulse Resp BP Pulse Ox 97.6 F 93 16 147/58 97 01/20/17 19:39 01/20/17 19:39 01/20/17 19:39 01/20/17 19:39 01/20/17 19:39 Vital Signs Reviewed: Yes Appearance: Positive: Well-Appearing Skin: Positive: Warm, Dry, Other - large area of ecchymosis to right lower back , nontender to exam Head/Face: Positive: Normal Head/Face Inspection Eyes: Positive: Normal, EOMI, COLTEN, Conjunctiva Clear ENT: Positive: Normal ENT inspection, Pharynx normal, TMs normal Respiratory/Lung Sounds: Positive: Clear to Auscultation, Breath Sounds Present Cardiovascular: Positive: Normal, RRR Abdomen Description: Positive: Nontender, Soft Bowel Sounds: Positive: Present Musculoskeletal: Positive: Strength/ROM Intact - back, upper and lower extremities Neurological: Positive: Sensory/Motor Intact, CN Intact II-III Diagnostics - Vital Signs Vital Signs Temp Pulse Resp BP Pulse Ox 01/20/17 22:03 97.9 F 96 16 154/71 96 01/20/17 19:39 97.6 F 93 16 147/58 97 - Laboratory Lab Statement: Any lab studies that have been ordered have been reviewed, and results considered in the medical decision making process. - CT abd CT Interpretation: Positive (See Comments) - abdominal wall hematoma, nepholithasis, cholelithasis CT Interpretation Completed By: Radiologist Adult Trauma Course/Dx - Course Course Of Treatment: 71F presents with right flank injury today. She was trying to get on her shoes. She states that she fell backwards onto her right back. She denies any pain but she has a large hematoma to right side of back. She is not on any blood thinners. She is able to ambulate. She denies any head injury or LOC. She denies any upper or lower extremity pain. She denies any chest pain or SOB. She is not dizzy. She denies any neck pain. She has no complaints. on exam has large area of ecchymosis on right side of back. normal neuro exam. no tenderness anywhere. CT shows abdominal wall hematoma. will discharge with follow up with primary.patient understand and agrees with plan. - Diagnoses Differential Diagnosis/HQI/PQRI: Positive: Abrasion(s), Contusion(s), Hematoma(s ) Provider Diagnoses: Fall, Abdominal wall hematoma Discharge - Discharge Plan Condition: Good Disposition: HOME Patient Education Materials: Hematoma (ED) Referrals: Holland Marion MD [Primary Care Provider] - Additional Instructions: Place ice on area Take Tylenol for pain every 6 hours Follow up with primary within 5 days Return to ED if develop any new or worsening symptoms
[2017-01-21 02:22] VITALS: BP 129/63
--- NOTE | 2017-01-21 08:02 | RAD ---
INDICATION: Trauma, right flank bruising. COMPARISON: There are no prior studies available for comparison. TECHNIQUE: A CT scan of the abdomen and pelvis was performed without intravenous or oral contrast. Contiguous axial sections were obtained from the lung bases through the symphysis pubis. Images were reconstructed in the coronal and sagittal planes. FINDINGS: The lung bases are clear. No pleural effusion is present. The liver and spleen are normal in size without significant focal abnormality on this noncontrast study. There is mild increased density in the dependent portion of the gallbladder. The gallbladder is not distended. No gallbladder wall thickening is seen. The pancreas appears to be within normal limits. The adrenal glands and kidneys are normal in size. There is a fluid density lesion arising from the upper pole of the right kidney measuring 2.5 cm in size most consistent with a cyst. There is suggestion of small 1 to 2 mm nonobstructing left renal calculi. No hydronephrosis is seen. The aorta is normal in caliber with mild calcific plaque present. No significant enlarged retroperitoneal lymph nodes are seen. The stomach, small and large bowel appear nondistended. The appendix is within normal limits. There is mild descending and sigmoid diverticulosis without evidence for diverticulitis. The patient appears to be status post hysterectomy. No free intraperitoneal air or fluid is seen. There is a hyperdense mass in the subcutaneous tissues present in the right flank and posterior lateral right lower chest region measuring 12.2 x 5.4 x 6.1 cm in size most consistent with a hematoma. No fracture is seen. IMPRESSION: 1. HEMATOMA IN THE RIGHT POSTEROLATERAL ABDOMINAL WALL. 2. SMALL NONOBSTRUCTING LEFT RENAL CALCULI. 3. POSSIBLE CHOLELITHIASIS VERSUS GALLBLADDER SLUDGE.
== END 2017-01-21 02:10 | disposition home or self-care (01) ==
LOC: ED 19:31
DX: S30.1XXA Contusion of abdominal wall, initial encounter (principal); W19.XXXA Unspecified fall, initial encounter; Y93.9 Activity, unspecified; Y92.9 Unspecified place or not applicable
CPT/HCPCS: 74176; 99283

== ENCOUNTER 2021-04-07 10:23 | Inpatient (IN) ==
[2021-04-07 12:32] LABS: ABS Monocytes 1.2 10^3/ul (0-0.8); ABS Neutrophils 11.7 10^3/ul (1.5-7.7); Eosinophil % 0.1 %; Hematocrit 41 % (35-47); Hemoglobin 14.1 g/dL (12.0-16.0); Lymphocyte % 7.1 %; Mean Corpuscular HGB Conc 35 g/dL (31-36); Mean Corpuscular Hemoglobin 30 pg (27-31); Mean Corpuscular Volume 87 fL (80-97); Mean Platelet Volume 7.9 fL (7.4-10.4); Platelet Count 260 10^3/uL (150-450); Red Blood Count 4.66 10^6 /uL (3.70-4.87); Red Cell Distribution Width 14 % (10-15); White Blood Count 13.9 10^3/uL (3.5-10.8)
[2021-04-07 12:36] LABS: Urine Appearance Clear; Urine Bilirubin Negative (Negative); Urine Blood Negative (Negative); Urine Color Yellow; Urine Glucose Negative (Negative); Urine Ketones 1+ (Negative); Urine Nitrite Negative (Negative); Urine Protein 3+(>=500 mg/dL) (Negative); Urine Specific Gravity 1.014 (1.002-1.030); Urine Urobilinogen Negative (Negative)
[2021-04-07 12:38] LABS: Urine Bacteria Absent (Absent); Urine Red Blood Cell 1+(3-5/hpf) (Absent); Urine White Blood Cell Trace(0-5/hpf) (Absent)
[2021-04-07 12:41] LABS: Activated Partial Thrombo Time 27.2 seconds (26.0-38.0); INR 0.98 (0.86-1.15)
[2021-04-07 13:10] LABS: Troponin I 0.07 ng/mL (<0.03)
[2021-04-07 13:29] LABS: ALT 24 U/L (7-52); AST 33 U/L (13-39); Albumin 4.6 g/dL (3.2-5.2); Albumin/Globulin Ratio 1.3 (1-3); Alkaline Phosphatase 67 U/L (35-149); Anion Gap 12 mmol/L (2-11); Blood Urea Nitrogen 12 mg/dL (6-24); C Reactive Protein 1.67 mg/L (<8.01); CO2 Carbon Dioxide 26 mmol/L (22-32); Calcium 10.4 mg/dL (8.6-10.3); Chloride 89 mmol/L (101-111); Globulin 3.6 g/dL (2-4); Glucose 130 mg/dL (70-100); Potassium 3.2 mmol/L (3.5-5.0); Sodium 127 mmol/L (135-145); Total Protein 8.2 g/dL (6.4-8.9); eGFR CKD-EPI 97.7 (>60)
[2021-04-07] MEDS ORDERED: NS 0.9% 1000 ml BAG 1,000 ML IV ONE (13:53)
[2021-04-07] MEDS ORDERED: Potassium Chlor 20 meq TAB.ER PO ONE (13:53)
[2021-04-07] MEDS ORDERED: Iohexol 350 (CONTRAST) 500 ML MDV IV ONE (13:58)
[2021-04-07] MEDS ORDERED: Enoxaparin 80 MG/0.8 ML SYR SUBCUT ONE (14:52)
[2021-04-07 15:38] LABS: Magnesium 1.9 mg/dL (1.9-2.7)
[2021-04-07 15:51] LABS: Troponin I 0.06 ng/mL (<0.03)
[2021-04-07] MEDS ORDERED: Bismuth Subsalicylate (BTL) 525 MG/30 ML (BULK BTL) PO PRN (16:09)
[2021-04-07] MEDS ORDERED: guaiFENesin 100 mg/5 ml LIQ unit dose cup PO PRN (16:09)
[2021-04-07] MEDS ORDERED: Neomycin/Polym/Bacit TOP OINT 15 GM TOPICAL PRN (16:09)
[2021-04-07] MEDS ORDERED: RISEDRONATE 35 MG PO SCH (16:15)
[2021-04-07] MEDS ORDERED: Ondansetron ODT 4 mg TAB 4 MG TAB PO PRN (16:22)
[2021-04-07] MEDS: Polyethylene Glycol 3350 17 GM PACKET PO SCH (18:30)
[2021-04-07] MEDS ORDERED: Triamcinolone 0.025% OINT 15 GM TUBE TOPICAL PRN (20:08)
[2021-04-07] MEDS: Calcium (OSCAL) 500 mg TAB PO SCH (22:24)
[2021-04-08] MEDS: NS 0.9% 1000 ml BAG 1,000 ML IV SCH ×2 (01:04→16:16)
[2021-04-08 06:00] LABS: ABS Lymphocytes 1.7 10^3/ul (1.0-4.8); ABS Neutrophils 4.1 10^3/ul (1.5-7.7); Eosinophil % 0.2 %; Hematocrit 34 % (35-47); Lymphocyte % 24.3 %; Mean Corpuscular HGB Conc 35 g/dL (31-36); Mean Corpuscular Hemoglobin 31 pg (27-31); Mean Corpuscular Volume 87 fL (80-97); Mean Platelet Volume 8.1 fL (7.4-10.4); Platelet Count 219 10^3/uL (150-450); Red Blood Count 3.89 10^6 /uL (3.70-4.87); Red Cell Distribution Width 13 % (10-15); White Blood Count 6.8 10^3/uL (3.5-10.8)
[2021-04-08 06:22] LABS: Potassium 3.6 mmol/L (3.5-5.0)
[2021-04-08 06:23] LABS: Albumin 3.5 g/dL (3.2-5.2); Albumin/Globulin Ratio 1.3 (1-3); Globulin 2.7 g/dL (2-4); Magnesium 1.9 mg/dL (1.9-2.7); Total Bilirubin 0.6 mg/dL (0.2-1.0); Total Protein 6.2 g/dL (6.4-8.9); eGFR CKD-EPI 92.5 (>60)
[2021-04-08] MEDS ORDERED: Magnesium Sulfate IV 1GM/100ML 1 GM/100 ML BAG IV ONE (07:22)
[2021-04-08] MEDS: Polyethylene Glycol 3350 17 GM PACKET PO SCH (08:32)
[2021-04-08] MEDS: Calcium (OSCAL) 500 mg TAB PO SCH ×2 (08:33→20:57)
[2021-04-08] MEDS ORDERED: Enoxaparin 80 MG/0.8 ML SYR SUBCUT SCH (12:00)
[2021-04-09] MEDS: NS 0.9% 1000 ml BAG 1,000 ML IV SCH (02:14)
[2021-04-09 05:51] LABS: ABS Eosinophils 0.1 10^3/ul (0-0.6); ABS Lymphocytes 1.7 10^3/ul (1.0-4.8); ABS Monocytes 0.8 10^3/ul (0-0.8); ABS Neutrophils 3.8 10^3/ul (1.5-7.7); Eosinophil % 1.3 %; Hematocrit 32 % (35-47); Hemoglobin 11.2 g/dL (12.0-16.0); Mean Corpuscular HGB Conc 35 g/dL (31-36); Mean Corpuscular Hemoglobin 31 pg (27-31); Mean Corpuscular Volume 89 fL (80-97); Mean Platelet Volume 8.2 fL (7.4-10.4); Platelet Count 189 10^3/uL (150-450); Red Blood Count 3.64 10^6 /uL (3.70-4.87); Red Cell Distribution Width 14 % (10-15); White Blood Count 6.4 10^3/uL (3.5-10.8)
[2021-04-09 06:12] LABS: Calcium 8.1 mg/dL (8.6-10.3); Potassium 3.8 mmol/L (3.5-5.0); eGFR CKD-EPI 91.1 (>60)
[2021-04-09] MEDS: Polyethylene Glycol 3350 17 GM PACKET PO SCH (07:32)
[2021-04-09] MEDS: Calcium (OSCAL) 500 mg TAB PO SCH (07:32)
[2021-04-09 12:09] VITALS: BP 127/56
== END 2021-04-09 14:10 | DRG 176 ==
LOC: ED 10:23 → EDHOLD 17:15 → MEDTELE 19:45
PROVIDERS: ADMIT Student in an Organized Health Care Education/Training Program; ATTEND Student in an Organized Health Care Education/Training Program

== ENCOUNTER 2023-12-05 14:43 | Inpatient (IN) ==
[2023-12-05] MEDS: Acetaminophen IV 1 GM/100ML 1,000 MG/100 ML BAG IV ONE (19:11)
[2023-12-05 19:37] LABS: INR 1.02 (0.85-1.14)
[2023-12-05 19:52] LABS: ABS Monocytes 0.8 10^3/uL (0.0-0.9); ABS Neutrophils 10.6 10^3/uL (1.5-7.6); Hematocrit 38.8 % (35-45); Hemoglobin 12.7 g/dL (11.5-14.3); Lymphocyte % 8.2 %; Mean Corpuscular Hemoglobin 29.2 pg (27-33); Mean Corpuscular Hgb Conc 32.9 g/dL (31-36); Mean Corpuscular Volume 88.9 fL (80-97); Mean Platelet Volume 8.2 fL (7.5-11.2); Platelet Count 250 10^3/uL (150-450); Red Blood Count 4.36 10^6/uL (3.63-4.92); Red Cell Distribution Width 14.3 % (12-17); White Blood Count 12.4 10^3/uL (3.8-11.8)
[2023-12-05 19:53] LABS: Albumin 4.5 g/dL (3.2-5.2); Albumin/Globulin Ratio 1.3 (1-3); Creatinine, Serum 0.71 mg/dL (0.51-0.95); Globulin 3.4 g/dL (2-4); Potassium 4.3 mmol/L (3.5-5.0); Total Bilirubin 0.5 mg/dL (0.2-1.0); Total Protein 7.9 g/dL (6.4-8.9)
[2023-12-05] MEDS ORDERED: Senna TAB 8.6 mg TAB PO PRN (23:01)
[2023-12-05] MEDS ORDERED: Polyethylene Glycol 3350 17 GM PACKET PO PRN (23:01)
[2023-12-06] MEDS: Heparin 5000 UNITS/ML 1 mL VIAL SUBCUT SCH (02:09)
[2023-12-06 05:36] LABS: ABS Basophils 0.1 10^3/uL (0.0-0.1); ABS Eosinophils 0.1 10^3/uL (0.0-0.5); ABS Lymphocytes 1.4 10^3/uL (1.0-4.8); ABS Monocytes 0.7 10^3/uL (0.0-0.9); ABS Neutrophils 4.9 10^3/uL (1.5-7.6); ABS Nucleated RBC 0.01 10^3/ul; Eosinophil % 0.8 %; Hematocrit 35.3 % (35-45); Mean Corpuscular Hemoglobin 30.1 pg (27-33); Mean Corpuscular Hgb Conc 33.9 g/dL (31-36); Mean Corpuscular Volume 88.9 fL (80-97); Nucleated Red Blood Cells % 0.1 %/100WBC (0.0-0.8); Platelet Count 217 10^3/uL (150-450); Red Blood Count 3.97 10^6/uL (3.63-4.92); Red Cell Distribution Width 14.2 % (12-17); Urine Appearance Turbid; Urine Bilirubin Negative (Negative); Urine Blood Negative (Negative); Urine Color Yellow; Urine Glucose Negative (Negative); Urine Ketones Negative (Negative); Urine Nitrite Negative (Negative); Urine Protein Trace (Negative); Urine Specific Gravity 1.028 (1.002-1.030); Urine Urobilinogen Negative (Negative); White Blood Count 7.1 10^3/uL (3.8-11.8)
[2023-12-06 05:51] LABS: Creatinine, Serum 0.7 mg/dL (0.51-0.95); Magnesium 2.1 mg/dL (1.9-2.7); Potassium 4.3 mmol/L (3.5-5.0); eGFR CKD-EPI 88.5 (>60)
[2023-12-06 06:39] LABS: Vitamin D Total 25(OH) 43.7 ng/mL (20-50)
[2023-12-06 07:13] LABS: Urine Bacteria Absent /HPF (Absent); Urine Red Blood Cell Trace(0-2/hpf) /HPF (0-Trace); Urine Squamous Epithelial Cell Present /HPF (Absent); Urine White Blood Cell 3+(>20/hpf) /HPF (0-Trace)
[2023-12-06] MEDS: Memantine XR 14 mg CAP PO SCH (11:53)
[2023-12-06] MEDS: Calcium (OSCAL) 500 mg TAB PO SCH (11:54)
[2023-12-06] MEDS: NF:Vibegron 75 MG TAB (NF) PO SCH (12:04)
[2023-12-07 05:51] LABS: Hematocrit 36.6 % (35-45); Hemoglobin 12.4 g/dL (11.5-14.3)
[2023-12-08 09:50] VITALS: BP 127/86
== END 2023-12-08 14:05 | DRG 551 ==
LOC: EDHOLD 14:43 → ED 14:43 → SUATTDRO 21:30 → OBSVTOIN 21:30 → INTOOBSV 21:30 → EDHOLD 12-06 09:04 → MEDTELE 12-06 15:10
PROVIDERS: ADMIT Student in an Organized Health Care Education/Training Program; ATTEND Internal Medicine